=== PATIENT | male | born 1995 | race Two or more races ===

== ENCOUNTER 2019-04-04 23:16 | Emergency (ER) | payer OTHER ==
[~2019-04-04] VITALS: Ht 165.1 cm; Wt 70.8 kg
[2019-04-04 23:40] VITALS: BP 125/43
--- NOTE | 2019-04-04 23:40 | NUR ---
ER DISCHARGE NOTE: Patient is cleared to be discharged per ERMD, pt is aox4, on room air, with stable vital signs. pt was given dc and prescription instructions, pt was able to verbalize understanding, pt id band removed without complications. pt is able to ambulate with steady gait. pt took all belongings. assessed area and not ready, pt to return.
--- NOTE | 2019-04-05 00:01 | Emergency Room Report ---
History of Present Illness General Chief Complaint: Lower Extremity Injury Source: Patient Present Illness HPI Patient is a 23-year-old male who presented for wound check to foot injury. The patient had previous suture placement approximately 4 days prior to arrival. He denies any pain or discomfort. He is requesting suture removal. Patient denies any current complaints. [place]. Allergies: Coded Allergies: No Known Allergies (Unverified , 04/04/19) Patient History Reviewed Nursing Documentation: PMH: Agreed; PSxH: Agreed Nursing Documentation-PMH Past Medical History: No Stated History Review of Systems All Other Systems: negative except mentioned in HPI Physical Exam Vital Signs Date Time Temp Pulse Resp B/P (MAP) Pulse Ox O2 Delivery O2 Flow Rate FiO2 04/04/19 23:22 98.4 82 18 125/43 (70) 96 Room Air General Appearance: well appearing, no apparent distress, alert, GCS 15 Head: normocephalic, atraumatic ENT: hearing grossly normal, normal voice Neck: full range of motion, supple Respiratory: lungs clear, no rhonchi, no respiratory distress, speaking full sentences Cardiovascular #1: normal inspection Gastrointestinal: normal inspection, non tender, soft Neurologic: normal inspection, alert, oriented x3, responsive, hand grinder III-XII nml as tested, normal gait Psychiatric: mood/affect normal Skin: no rash Medical Decision Making Diagnostic Impression: Primary Impression: Visit for wound check ER Course Patient presented for wound check. Differential diagnosis included was not limited to infected wound, nonhealed wound, neuroma, healed wound. Patient's wound appears to be partially healed but does not appear to be ready for suture removal. Patient was advised to have wound rechecked in several days and have suture removal when more appropriate. Patient's wound does not appear to be infected. Last Vital Signs Date Time Temp Pulse Resp B/P (MAP) Pulse Ox O2 Delivery O2 Flow Rate FiO2 04/04/19 23:22 98.4 82 18 125/43 (70) 96 Room Air Status: unchanged Disposition: HOME, SELF-CARE Condition: Stable Patient Instructions: Wound Check Additional Instructions: Follow up for suture removal in 4-7 days. Jerad Weaver MD Apr 05, 2019 00:01
== END 2019-04-05 | disposition home or self-care (01) ==
LOC: EMR 23:59
DX: S99.921A Unspecified injury of right foot, initial encounter (principal); X58.XXXA Exposure to other specified factors, initial encounter; Y92.9 Unspecified place or not applicable
CPT/HCPCS: 99281